=== PATIENT | female | born 1990 | race Caucasian/White ===

== ENCOUNTER 2019-05-07 21:51 | Emergency (ER) | payer OTHER ==
[~2019-05-07] VITALS: Ht 170.2 cm; Wt 103.0 kg
[~2019-05-07 21:51] MED LIST: RISP0.251 PO
[2019-05-07 21:55] VITALS: BP 134/101
--- NOTE | 2019-05-07 22:00 | NUR ---
PATIENT PRESENTS TO THE ED WITH C/O BACK PAIN. PATIENT RATES PAIN 10/10. PATIENT DENIES ANY TRAUMA OR INJURY. PT REPORTS HX OF CHRONIC BACK PAIN AND SCHIZOPRENIA. NO S/S OF DISTRESS AT THIS TIME. BED LOWERED WITH SIDE RAILS UP. WILL CONTINUE TO MONITOR
--- NOTE | 2019-05-07 22:08 | NUR ---
PT AMBULATED TO ER BED 8
--- NOTE | 2019-05-07 22:31 | NUR ---
DR. GALLAGHER EVALUATING PT
[2019-05-07] MEDS ORDERED: predniSONE 20 MG TAB PO ONE (23:00)
[2019-05-07 23:30] VITALS: BP 128/81
== END 2019-05-07 23:30 | disposition home or self-care (01) ==
LOC: MED 21:51
DX: M54.5 Low back pain (principal); R20.0 Anesthesia of skin; F20.5 Residual schizophrenia; Z79.899 Other long term (current) drug therapy
CPT/HCPCS: 99283; J7512

== ENCOUNTER 2024-02-05 20:00 | Emergency (ER) | payer OTHER ==
[~2024-02-05] VITALS: Ht 170.2 cm; Wt 90.7 kg
[2024-02-05 20:00] VITALS: BP 135/82; PULSE 80; RESP 18; TEMP 98.1; O2SAT 100
[2024-02-05] MEDS ORDERED: ALUMINUM HYD/MAG/SIMETHICONE 30 ML UDC ONE (22:50)
[2024-02-05] MEDS ORDERED: DICYCLOMINE HCL LIQUID 10 MG/5 ML UDC ONE (22:51)
[2024-02-05 23:01] VITALS: O2SAT 100
[2024-02-05] MEDS: DICYCLOMINE HCL LIQUID 20 MG, ALUMINUM HYD/MAG/SIMETHICONE 30 ML, LIDOCAINE VISCOUS 2% ... PO ONE (23:03)
[2024-02-05] MEDS: ONDANSETRON 4 MG ODT PO ONE (23:05)
[2024-02-05] MEDS: KETOROLAC 30 MG/ML VIAL IM ONE (23:20)
[2024-02-06] MEDS ORDERED: MAG355OR2 PO (00:33)
[2024-02-06] MEDS ORDERED: ONDA-188 SL (00:33)
[2024-02-06] MEDS ORDERED: ACET-10509 PO (00:33)
[2024-02-07] MEDS ORDERED: FAMO-90 PO (15:27)
[2024-02-07] MEDS ORDERED: IMO2 PO (15:27)
[2024-02-07] MEDS ORDERED: METO-485 PO (15:27)
== END 2024-02-06 00:45 | disposition home or self-care (01) ==
LOC: MED 20:00
DX: R11.2 Nausea with vomiting, unspecified (principal); R19.7 Diarrhea, unspecified; R10.13 Epigastric pain; R10.12 Left upper quadrant pain; E86.0 Dehydration; Z79.899 Other long term (current) drug therapy
CPT/HCPCS: 81002; 81025; 96372; 99283; J1885; Q0162

== ENCOUNTER 2024-02-07 12:32 | Emergency (ER) | payer OTHER ==
[~2024-02-07] VITALS: Ht 170.2 cm; Wt 99.8 kg
[~2024-02-07 12:32] MED LIST changes: +ACET-10509 PO; +MAG355OR2 PO; +ONDA-188 SL
[2024-02-07 12:36] VITALS: BP 126/83; PULSE 85; RESP 18; TEMP 98; O2SAT 98
[2024-02-07] MEDS: NACL 0.9% 1,000 ML IV ONE (14:02)
[2024-02-07] MEDS: ONDANSETRON 4 MG/2 ML VIAL IVP ONE (14:07)
[2024-02-07] MEDS: KETOROLAC 30 MG/ML VIAL IVP STA (14:10)
[2024-02-07 14:14] LABS: BASOPHILS # (AUTO) 0.1 K/uL (0.00-0.22); BASOPHILS % (AUTO) 0.6 % (0.0-2.0); EOSINOPHILS # (AUTO) 0.1 K/uL (0-0.4); EOSINOPHILS % (AUTO) 0.6 % (0.0-4.0); HEMATOCRIT 34.9 % (36-48); HEMOGLOBIN 11.9 g/dL (12.0-16.0); LYMPHOCYTES # (AUTO) 1.6 K/uL (2.5-16.5); MEAN CORPUSCULAR HEMOGLOBIN 27 pg (27-31); MEAN CORPUSCULAR HGB CONC 34 g/dL (33-37); MONOCYTES # (AUTO) 0.6 K/uL (0.8-1.0); MONOCYTES % (AUTO) 5.9 % (1.7-9.3); NEUTROPHILS # (AUTO) 7.2 K/uL (1.8-7.7); NEUTROPHILS % (AUTO) 75.9 % (42.2-75.2); PLATELET COUNT (AUTO) 281 K/uL (140-450); RED BLOOD CELL COUNT(AUTO) 4.48 MIL/uL (4.20-5.40); RED CELL DISTRIBUTION WIDTH 14.4 % (11.6-13.7); WHITE BLOOD COUNT (AUTO) 9.5 K/uL (4.8-10.8)
[2024-02-07 14:27] LABS: APPEARANCE,URINE CLEAR (CLEAR); BILIRUBIN,URINE 2+ (NEGATIVE); BLOOD, URINE NEGATIVE (NEGATIVE); COLOR,URINE YELLOW (YELLOW); LEUKOCYTE ESTERASE ,URINE NEGATIVE (NEGATIVE); NITRITE, URINE NEGATIVE (NEGATIVE); PROTEIN,URINE NEGATIVE (NEGATIVE); UGLUCOSE NEGATIVE (NEGATIVE); UROBILINOGEN,URINE 0.2 EU/dL (0.2 - 1)
[2024-02-07 14:34] LABS: ANION GAP 11.2 (8-16); CALCIUM 8.7 mg/dL (8.5-10.1); CARBON DIOXIDE 29.3 mmol/L (21-32); CREATININE 0.8 mg/dL (0.6-1.3); POTASSIUM 3.5 mmol/L (3.5-5.1)
[2024-02-07 14:35] LABS: ICTOTEST NEGATIVE (NEGATIVE)
[2024-02-07 14:48] LABS: ALBUMIN 3.1 g/dL (3.4-5.0); BILIRUBIN,DIRECT 0.1 mg/dL (0.0-0.3); TOTAL BILIRUBIN 0.4 mg/dL (0.0-1.0); TOTAL PROTEIN, SERUM 7.7 g/dL (6.4-8.2)
[2024-02-07] MEDS ORDERED: METO-485 PO (15:27)
[2024-02-07] MEDS ORDERED: FAMO-90 PO (15:27)
[2024-02-07] MEDS ORDERED: IMO2 PO (15:27)
[2024-02-07 15:49] VITALS: BP 100/50; PULSE 65; RESP 16; TEMP 97.8; O2SAT 96
== END 2024-02-07 15:49 | disposition home or self-care (01) ==
LOC: MED 12:32
DX: R11.2 Nausea with vomiting, unspecified (principal); R19.7 Diarrhea, unspecified; R10.13 Epigastric pain; R10.12 Left upper quadrant pain; F31.9 Bipolar disorder, unspecified; Z79.899 Other long term (current) drug therapy
CPT/HCPCS: 36415; 80048; 80076; 81003; 81025; 83690; 85025; 96361; 96374; 96375; 99284; J1885; J2405; J7030